=== PATIENT | male | born 1955 | race Caucasian/White ===

== ENCOUNTER 2024-10-11 14:30 | Emergency (ER) | payer OTHER, MEDICARE ==
[~2024-10-11] VITALS: Ht 175.3 cm; Wt 101.2 kg
[~2024-10-11 14:30] MED LIST: CALCIUM 1,0001 EAC1; HYDROCODON-ACE1 EA10 PO; IBUPROFEN100 M1 PO; LANTUS100 UNITS/ SUB-Q; MAPAP500 MG PO; MIRALAX17 GM; NEURONTIN100 MG PO; NOVOLOG FL100 UNIT/1 SUB-Q; PLAVIX75 MG; SERTRALINE HCL50 MG PO
[2024-10-11] MEDS ORDERED: SERTRALINE HCL150 MG PO (15:28)
[2024-10-11 15:53] LABS: BASOPHILS 0.7 % (0-2); EOSINOPHILS 1.1 % (0-6); HEMATOCRIT 38.4 % (35.0-50.0); LYMPHOCYTES 18.1 % (24-44); MCH 29.3 (27-36); MCHC 33.9 g/dl (30-36); MCV 86.6 fl (81-99); MONOCYTES 7.3 % (0-12); NEUTROPHILS 72.8 % (39-80); PLATELET COUNT 234 K/uL (140-440); RBC 4.44 M/ul (4.3-5.7); RDW 14.1 (10.5-15.0)
[2024-10-11 16:15] LABS: ALBUMIN 3.2 g/dL (3.4-5.0); ALBUMIN/GLOBULIN RATIO 0.94 (1.1-2.4); ANION GAP 12.5 (7-21); BILIRUBIN, TOTAL 0.4 ng/dL (0.2-1.0); BUN/CREATININE RATIO 9.82 (6.0-28.6); CALCIUM 9.2 mg/dL (8.5-10.1); CREATININE, SERUM 1.12 mg/dL (0.70-1.30); POTASSIUM 4.5 mmol/L (3.5-5.1); PROTEIN, TOTAL 6.6 g/dL (6.4-8.2)
[2024-10-11 17:04] LABS: AMPHETAMINES, URINE NEGATIVE (NEGATIVE); BARBITURATES, URINE NEGATIVE (NEGATIVE); BENZODIAZEPINE, URINE NEGATIVE (NEGATIVE); BUPRENORPHINE, URINE NEGATIVE (NEGATIVE); CANNABINOID, URINE NEGATIVE (NEGATIVE); COCAINE, URINE NEGATIVE (NEGATIVE); ECSTASY, URINE POSITIVE (NEGATIVE); FENTANYL, URINE NEGATIVE (NEGATIVE); METHADONE, URINE NEGATIVE (NEGATIVE); OPIATES, URINE NEGATIVE (NEGATIVE); OXYCODONE, URINE NEGATIVE (NEGATIVE); PHENCYCLIDINE, URINE NEGATIVE (NEGATIVE)
[2024-10-11 18:09] VITALS: BP 172/78
--- NOTE | 2024-10-12 21:53 | EKG ---
[facility] [address] [place] [address] Signed Normal sinus rhythm Left axis deviation Nonspecific intraventricular block Minimal voltage criteria for LVH, may be normal variant ( [place] product ) Abnormal ECG When compared with ECG of 29-JUL-2024 09:20, QRS duration has increased Confirmed by Heriberto Bedoya DO ([id number]) on 10/12/2024 9:52:48 PM Electronically Signed By: HERIBERTO BEDOYA DO 10/12/24 [id number] PATIENT NAME: ROGELIORAJNI Electrocardiogram DATE OF : 55 PHYSICIAN: HERIBERTO BEDOYA DO REPORT #: [id number] REPORT IS CONFIDENTIAL AND NOT TO BE RELEASED WITHOUT AUTHORIZATION
== END 2024-10-11 18:05 | disposition home or self-care (01) ==
LOC: ED 14:30
PROVIDERS: Emergency Medicine
DX: R53.1 Weakness (principal); F03.90 Unspecified dementia, unspecified severity, without behavioral disturbance, psychotic disturbance, mood disturbance, and anxiety; E11.40 Type 2 diabetes mellitus with diabetic neuropathy, unspecified; H54.62 Unqualified visual loss, left eye, normal vision right eye; H91.8X9 Other specified hearing loss, unspecified ear; G47.30 Sleep apnea, unspecified; Z86.73 Personal history of transient ischemic attack (TIA), and cerebral infarction without residual deficits; Z91.013 Allergy to seafood; Z88.5 Allergy status to narcotic agent; Z88.0 Allergy status to penicillin; Z79.4 Long term (current) use of insulin; Z79.01 Long term (current) use of anticoagulants; Z79.899 Other long term (current) drug therapy
CPT/HCPCS: 36415; 70450; 73560; 80053; 80307; 83880; 84484; 85025; 93005; 93010; 99285-25